=== PATIENT | female | born 1985 | race Caucasian/White ===

== ENCOUNTER 2017-03-01 09:53 | Emergency (ER) | payer OTHER ==
[2014-08-19 08:42] VITALS: BMI 34.3
--- NOTE | 2017-03-02 12:02 | RAD ---
PROCEDURE: Left Knee Radiographs. HISTORY: Pain. COMPARISON: None. FINDINGS: BONES: Normal. No fracture. JOINTS: Normal. No osteoarthritis. JOINT EFFUSION: None. OTHER FINDINGS: The patella is unremarkable IMPRESSION: Normal radiographs of the left knee.
--- NOTE | 2017-03-02 14:44 | US ---
PROCEDURE: Left lower extremity venous US HISTORY: Leg pain and swelling. Evaluate for DVT. PHYSICIAN(S): Hira Jaime MD. TECHNIQUE: Duplex sonography and color-flow Doppler with graded compression were used to evaluate the deep venous system of the left lower extremity. FINDINGS: The visualized deep venous system of the left lower extremity is sonographically normal and compressible. Normal wave forms and augmentation are seen. There is no sonographic evidence for deep venous thrombosis in the visualized segments of the left lower extremity. IMPRESSION: 1. No sonographic evidence for deep venous thrombosis in the visualized segments of the left lower extremity.
== END 2017-03-01 22:37 | disposition home or self-care (01) ==
LOC: ED 09:53
DX: M79.662 Pain in left lower leg (principal); M25.562 Pain in left knee; I83.90 Asymptomatic varicose veins of unspecified lower extremity

== ENCOUNTER 2017-08-03 08:55 | Emergency (ER) | payer OTHER ==
[2017-08-03 08:55] VITALS: BMI 34.3
[2017-08-03 09:07] VITALS: TEMP 98.9
--- NOTE | 2017-08-03 09:41 | ED PDOC ---
Arrival/HPI - General Chief Complaint: Abdominal Pain Time Seen by Provider: 08/03/17 09:22 Historian: Patient - History of Present Illness Narrative History of Present Illness (Text): 08/03/17 09:35 32yo female with no PMHx who present with complaint of nausea and vomiting x2days. Notes that she saw her PMD last month for same complaint and was given unknown medication without relieve. States she came to ED secondary to the constant nausea and reflux sensation. Took alkaseltzer without relieve. She denies abdominal pain, chest pain, diarrhea, constipation, fever, chills, urinary symptoms, any other complaint. Past Medical History - Provider Review Nursing Documentation Reviewed: Yes - Infectious Disease Hx of Infectious Diseases: None - Tetanus Immunization Tetanus Immunization: Unknown - Reproductive Menopause: No - Past Medical History Past Medical History: No Previous - Psychiatric Hx Depression: No Hx Emotional Abuse: No Hx Physical Abuse: No Hx Substance Use: No - Surgical History Hx Section: Yes - Anesthesia Hx Anesthesia Reactions: No - Suicidal Assessment Feels Threatened In Home Enviroment: No Family/Social History - Physician Review Nursing Documentation Reviewed: Yes Family/Social History: Unknown Family HX Smoking Status: Unknown If Ever Smoked Hx Alcohol Use: No Hx Substance Use: No Allergies/Home Meds Allergies/Adverse Reactions: Allergies No Known Allergies Allergy (Verified 03/09/14 09:01) Review of Systems - Physician Review All systems were reviewed & negative as marked: Yes - Review of Systems Constitutional: Normal Eyes: Normal ENT: Normal Respiratory: Normal Cardiovascular: Normal Gastrointestinal: Nausea, Vomiting. absent: Abdominal Pain, Constipation, Diarrhea, Hematochezia, Hematemesis Genitourinary Female: Normal Musculoskeletal: Normal Skin: Normal Neurological: Normal Endocrine: Normal Hemo/Lymphatic: Normal Psychiatric: Normal Physical Exam Vital Signs Reviewed: Yes Vital Signs Temp Pulse Resp BP Pulse Ox 08/03/17 09:03 98.9 F 83 20 132/95 H 97 Temperature: Afebrile Blood Pressure: Normal Pulse: Regular Respiratory Rate: Normal Appearance: Positive for: Well-Appearing, Non-Toxic, Comfortable Pain Distress: None Mental Status: Positive for: Alert and Oriented X 3 - Systems Exam Head: Present: Atraumatic, Normocephalic Pupils: Present: PERRL Extroacular Muscles: Present: EOMI Conjunctiva: Present: Normal Mouth: Present: Moist Mucous Membranes Neck: Present: Normal Range of Motion Respiratory/Chest: Present: Clear to Auscultation, Good Air Exchange. No: Respiratory Distress, Accessory Muscle Use Cardiovascular: Present: Regular Rate and Rhythm, Normal S1, S2. No: Murmurs Abdomen: Present: Normal Bowel Sounds, Other (Soft). No: Tenderness, Distention , Peritoneal Signs, Rebound, Guarding, McBurney's Point Tender, Rovsing's Sign Present Back: Present: Normal Inspection Upper Extremity: Present: Normal Inspection. No: Cyanosis, Edema Lower Extremity: Present: Normal Inspection. No: Edema Neurological: Present: GCS=15, CN II-XII Intact, Speech Normal Skin: Present: Warm, Dry, Normal Color. No: Rashes Psychiatric: Present: Alert, Oriented x 3, Normal Insight, Normal Concentration Medical Decision Making ED Course and Treatment: 08/03/17 11:19 32yo female in ED with complaint of N/V x 2days PT was hemodynamically stable in ED. Abodminal exam was unremarkable. No lab will be ordered at this time. EKG NSR @73bpm She was treated with Zofran and pepcid in ED On re evaluation she was able to tolerate water and crackers in ED. She will be DC home with a rx of Protonix, zofran. Referred to her PMD/GI - Lab Interpretations Lab Results: Lab Results 08/03/17 10:02: Urine Color Yellow, Urine Appearance Clear, Urine pH 8.5, Ur Specific N[place]bit 1.015, Urine Protein Trace H, Urine Glucose (UA) Negative, Urine Ketones Negative, Urine Blood Negative, Urine Nitrate Negative, Urine Bilirubin Negative, Urine Urobilinogen 0.2, Ur Leukocyte Esterase Negative, Urine RBC Negative, Urine WBC Negative - Medication Orders Current Medication Orders: Discontinued Medications Famotidine (Pepcid) 40 mg PO STAT STA Stop: 08/03/17 09:26 Last Admin: 08/03/17 10:06 Dose: 40 mg Ondansetron HCl (Zofran Odt) 4 mg PO STAT STA Stop: 08/03/17 09:24 Last Admin: 08/03/17 10:06 Dose: 4 mg Disposition/Present on Arrival - Present on Arrival Any Indicators Present on Arrival: No History of DVT/PE: No History of Uncontrolled Diabetes: No Urinary Catheter: No History of Decub. Ulcer: No History Surgical Site Infection Following: None - Disposition Have Diagnosis and Disposition been Completed?: Yes Diagnosis: Vomiting, GERD (gastroesophageal reflux disease) Disposition: HOME/ ROUTINE Disposition Time: 11:25 Patient Plan: Discharge Patient Problems: Current Active Problems Problem Status Onset GERD (gastroesophageal reflux disease) Acute Vomiting Acute Condition: STABLE Discharge Instructions (ExitCare): Gastroesophageal Reflux Disease (ED), Acute Nausea and Vomiting (ED) Additional Instructions: Follow up with your Doctor/specialist Return to ED for any new or worsening symptoms Prescriptions: Ondansetron ODT [Zofran ODT] 4 mg PO Q6 #15 odt Pantoprazole Sodium [Protonix] 40 mg PO DAILY #15 ect Referrals: Miko Fried MD [Primary Care Provider] - Follow up with primary Forms: [employer] (Uzbek)
[2017-08-03 10:06] LABS: PH,URINE 8.5 (4.7-8.0); URINE BILIRUBIN NEGATIVE (NEGATIVE); URINE BLOOD NEGATIVE (NEGATIVE); URINE GLUCOSE (UA) NEGATIVE (NEGATIVE); URINE KETONE NEGATIVE (NEGATIVE); URINE LEUKOCYTE ESTERASE NEGATIVE Leu/uL (NEGATIVE); URINE PROTEIN TRACE mg/dL (<30 mg/dL); URINE UROBILINOGEN 0.2 E.U./dL (<1 E.U./dL)
[2017-08-03 10:10] LABS: URINE APPEARANCE CLEAR (CLEAR); URINE COLOR YELLOW (YELLOW)
[2017-08-03 10:17] LABS: URINE RBC NEGATIVE /hpf (0-2); URINE WBC NEGATIVE /hpf (0-6)
[2017-08-03 11:50] VITALS: BP 112/70; PULSE 87; RESP 17; O2SAT 98
--- NOTE | 2017-08-03 22:50 | CARD ---
APPROVED REPORT EKG Measurement Heart [id number] <Conclusion> Normal sinus rhythm Normal ECG
== END 2017-08-03 11:50 | disposition home or self-care (01) ==
LOC: ED 08:55
DX: K21.9 Gastro-esophageal reflux disease without esophagitis (principal); R11.10 Vomiting, unspecified

== ENCOUNTER 2017-11-27 13:26 | Emergency (ER) | payer OTHER ==
[2017-11-27 13:26] VITALS: BMI 34.3
[2017-11-27 13:52] VITALS: TEMP 98.6; O2SAT 99
--- NOTE | 2017-11-27 14:15 | ED PDOC ---
Arrival/HPI - General Chief Complaint: ENT Problem Time Seen by Provider: 11/27/17 13:27 - History of Present Illness Narrative History of Present Illness (Text): 11/27/17 14:16 Pt is a 32 yo F presents to ED due to 10-11 day history of upper respiratory illness. Pt complains of sinus pain and congestion L > R, L ear pain, sore throat, cough, and headache. Pt denies any recent sick contacts and travel. Pt states that she has tried OTC cough suppressants and ibuprofen with no resolution of her symptoms. Pt denies CP, SOB, n/v/d, abdominal pain, fever, chills, dizziness, or dysuria. PMD: Geronimo Frye) Past Medical History - Infectious Disease Hx of Infectious Diseases: None - Tetanus Immunization Tetanus Immunization: Unknown - Past Medical History Past Medical History: No Previous - Psychiatric Hx Depression: No Hx Emotional Abuse: No Hx Physical Abuse: No Hx Substance Use: No - Surgical History Hx Section: Yes - Anesthesia Hx Anesthesia Reactions: No - Suicidal Assessment Feels Threatened In Home Enviroment: No Family/Social History Family/Social History: Unknown Family HX Smoking Status: Unknown If Ever Smoked Hx Alcohol Use: No Hx Substance Use: No Allergies/Home Meds Allergies/Adverse Reactions: Allergies No Known Allergies Allergy (Verified 11/27/17 13:48) Review of Systems - Review of Systems Constitutional: Fatigue Eyes: Normal ENT: Sore Throat, Rhinorrhea, Sinus Congestion Respiratory: Cough. absent: Sputum Cardiovascular: Normal Gastrointestinal: Normal Genitourinary Female: Normal Musculoskeletal: Normal Skin: Normal Neurological: Normal Endocrine: Normal Hemo/Lymphatic: Normal Psychiatric: Normal Physical Exam Temperature: Afebrile Blood Pressure: Normal Pulse: Regular Respiratory Rate: Normal Appearance: Positive for: Ill-Appearing Pain Distress: None Mental Status: Positive for: Alert and Oriented X 3 - Systems Exam Head: Present: Atraumatic, Normocephalic Conjunctiva: Present: Normal Ears: Present: Erythema (Left) Mouth: Present: Moist Mucous Membranes Pharnyx: Present: ERYTHEMA. No: EXUDATE, TONSILS ENLARGED Nose (Internal): Present: Rhinorrhea Neck: Present: Normal Range of Motion. No: Lymphadenopathy Respiratory/Chest: Present: Clear to Auscultation. No: Wheezes, Rales, Rhonchi Cardiovascular: Present: Regular Rate and Rhythm, Normal S1, S2. No: Murmurs, Rub, Gallop Abdomen: No: Tenderness, Distention, Peritoneal Signs Upper Extremity: Present: Normal Inspection Lower Extremity: Present: Normal Inspection Neurological: Present: GCS=15 Skin: Present: Warm, Dry, Normal Color Vital Signs Temp Pulse Resp BP Pulse Ox 11/27/17 15:42 81 18 123/72 99 11/27/17 13:51 98.6 F 90 17 122/72 99 Medical Decision Making ED Course and Treatment: 11/27/17 14:23 Assessment: 32 yo F presents to ED with URI. Plan: - Flu swab (Geronimo Urena) 11/27/17 16:09 pt with 10 symptoms of uri. lungs clear. onphone in nad. left om on exam. will treat. well appeairng, speaking full sentences. (Jason Banerjee) - Lab Interpretations Lab Results: Lab Results 11/27/17 14:30: Influenza Typ A,B (EIA) Negative for flu a/b Disposition/Present on Arrival - Present on Arrival Any Indicators Present on Arrival: No History of DVT/PE: No History of Uncontrolled Diabetes: No Urinary Catheter: No History of Decub. Ulcer: No History Surgical Site Infection Following: None - Disposition Have Diagnosis and Disposition been Completed?: Yes Disposition Time: 15:14 - Disposition Diagnosis: Otitis media, URI (upper respiratory infection) Disposition: HOME/ ROUTINE Condition: STABLE Discharge Instructions (ExitCare): Otitis Media (ED), Upper Respiratory Infection (ED) Additional Instructions: Complete antibiotics as prescribed. Tessalon perles as needed for cough. OTC Lozenges as needed for sore throat. Prescriptions: Amoxicillin 500 mg PO Q12H 10 Days tablet Benzonatate [Tessalon Perles] 200 mg PO Q8H PRN #30 sgl PRN Reason: Cough Referrals: Miko Fried MD [Primary Care Provider] - Follow up with primary Forms: [employer] (Macedonian)
[2017-11-27 15:43] VITALS: BP 123/72; PULSE 81; RESP 18
== END 2017-11-27 15:42 | disposition home or self-care (01) ==
LOC: ED 13:26
DX: J06.9 Acute upper respiratory infection, unspecified (principal); H66.92 Otitis media, unspecified, left ear